=== PATIENT | female | born 1940 | race Caucasian/White ===

== ENCOUNTER 2016-10-08 10:00 | Outpatient (RCR) | payer MEDICARE, BC ==
[~2016-10-08 10:00] MED LIST: ANUSOL-HC SUPPO25 MG RC; ESTRACE0.5 MG PO; ETODOLAC500 MG PO; PREMARIN0.3 MG PO; TAZTIA XT180 MG PO
== END 2016-10-08 11:06 | disposition home or self-care (01) ==
LOC: MKS.ESL.PT 10:00
DX: M47.816 Spondylosis without myelopathy or radiculopathy, lumbar region (principal); M17.0 Bilateral primary osteoarthritis of knee; I10 Essential (primary) hypertension; Z90.710 Acquired absence of both cervix and uterus; Z90.721 Acquired absence of ovaries, unilateral
CPT/HCPCS: G0283-GP; G8978-GP; G8979-GP; G8980-GP

== ENCOUNTER → 2016-11-24 | Outpatient (CLI) | payer MEDICARE, BC | LOC: MC.RAD 10:55 | DX: Z12.31 Encounter for screening mammogram for malignant neoplasm of breast (principal) ==

== ENCOUNTER → 2017-05-07 | Outpatient (CLI) | payer MEDICARE, BC | LOC: COL.RAD 05-03 13:00 | DX: M16.11 Unilateral primary osteoarthritis, right hip (principal) | CPT/HCPCS: J3301; Q9967 ==

== ENCOUNTER → 2017-06-25 | Outpatient (CLI) | payer MEDICARE, BC | LOC: COL.LAB 10:54 | DX: Z01.812 Encounter for preprocedural laboratory examination (principal) ==

== ENCOUNTER → 2018-11-08 | Outpatient (CLI) | payer MEDICARE, BC | LOC: MC.RAD 11:14 | DX: Z12.31 Encounter for screening mammogram for malignant neoplasm of breast (principal) ==

== ENCOUNTER → 2020-04-04 | Outpatient (CLI) | payer MEDICARE, BC | LOC: MC.RAD 09:15 | DX: N63.10 Unspecified lump in the right breast, unspecified quadrant (principal) ==

== ENCOUNTER 2020-05-13 14:20 | Inpatient (IN) | payer MEDICARE, BC ==
[~2020-05-13] VITALS: Ht 160 cm; Wt 65.5 kg
[2020-05-13 15:43] LABS: BASO % 0.1 % (0.0-2.0); GRAN # 6.8 (1.4-6.5); GRAN % 84.5 % (42.2-75.2); HEMATOCRIT 38.3 % (37.0-47.0); HEMOGLOBIN 12.5 g/dl (12.5-16.0); LYMPH # 0.7 (1.2-3.4); LYMPH % 8.5 % (20.0-51.0); MEAN CELL VOLUME 101 fl (80.0-100.0); MEAN CORPUSCULAR HEMOGLOBIN 33 pg (27.0-31.0); MEAN CORPUSCULAR HGB CONC 33 g/dl (33.0-37.0); MEAN PLATELET VOLUME 8.1 fl (7.4-10.4); MONO # 0.5 (0.1-0.6); MONO % 6.5 % (1.7-9.3); PLATELET COUNT 248 K/mm3 (130-400); RED BLOOD COUNT 3.78 M/mm3 (4.10-5.30); REDCELL DISTRIBUTION WIDTH-CV 13.2 % (11.5-14.5)
[2020-05-13 15:55] LABS: ALBUMIN 3.7 gm/dL (3.5-5.0); BILIRUBIN,TOTAL 0.7 mg/dL (0.0-1.0); CALCIUM 9.2 mg/dL (8.4-10.2); CREATININE, serum 0.63 (0.52-1.25); POTASSIUM 4.6 mmol/L (3.4-5.0); TOTAL PROTEIN 6.4 gm/dL (6.4-8.2)
[2020-05-13 17:07] LABS: COLLECTION METHOD CLEAN CATCH
[2020-05-13 17:15] LABS: PH 6 (5-8); SQUAMOUS EPITHELIAL 0-2 /hpf; URINE APPEARANCE Clear; URINE BACTERIA None Seen /hpf; URINE BILIRUBIN Negative (NEGATIVE); URINE BLOOD Negative (NEGATIVE); URINE COLOR Straw; URINE GLUCOSE 1+ (NEGATIVE); URINE KETONE Negative (NEGATIVE); URINE LEUKOCYTE ESTERASE Negative (NEGATIVE); URINE NITRATE Negative (NEGATIVE); URINE PROTEIN(semi-quant) Negative (NEGATIVE); URINE RBC 0-2 /hpf; URINE UROBILINOGEN Negative (NEGATIVE)
[2020-05-13] MEDS ORDERED: APRISO0.375 GM PO (17:46)
[2020-05-13] MEDS ORDERED: PREDNISONE10 MG PO (17:48)
[2020-05-13] MEDS ORDERED: PROBIOTIC FORMU1 CAP PO (17:49)
[2020-05-13 19:19] VITALS: BP 140/75; PULSE 87; TEMP 97.9
--- NOTE | 2020-05-13 19:56 | NUR ---
Awake, alert, oriented, ambulatory with steady gait, denies pain, clear liquid diet, tolerating diet well, updated on plan of care
[2020-05-14 00:02] VITALS: BP 127/71; PULSE 61; TEMP 97.9
[2020-05-14 04:42] VITALS: BP 136/75; PULSE 71; TEMP 97.4
[2020-05-14 07:13] VITALS: BP 144/76; PULSE 90; TEMP 97.4
[2020-05-14 07:19] LABS: BASO % 0.3 % (0.0-2.0); GRAN # 5.3 (1.4-6.5); GRAN % 84.7 % (42.2-75.2); HEMOGLOBIN 11.6 g/dl (12.5-16.0); LYMPH # 0.7 (1.2-3.4); LYMPH % 10.8 % (20.0-51.0); MEAN CELL VOLUME 102 fl (80.0-100.0); MEAN CORPUSCULAR HEMOGLOBIN 33 pg (27.0-31.0); MEAN CORPUSCULAR HGB CONC 32 g/dl (33.0-37.0); MEAN PLATELET VOLUME 8.5 fl (7.4-10.4); MONO # 0.2 (0.1-0.6); MONO % 3.7 % (1.7-9.3); PLATELET COUNT 239 K/mm3 (130-400); RED BLOOD COUNT 3.51 M/mm3 (4.10-5.30); REDCELL DISTRIBUTION WIDTH-CV 13.2 % (11.5-14.5)
[2020-05-14 07:21] LABS: HEMATOCRIT 35.9 % (37.0-47.0)
[2020-05-14 07:30] LABS: CALCIUM 8.4 mg/dL (8.4-10.2); CREATININE, serum 0.57 (0.52-1.25); MAGNESIUM 2.3 mg/dL (1.6-2.3); POTASSIUM 3.9 mmol/L (3.4-5.0)
--- NOTE | 2020-05-14 08:00 | NUR ---
Patient sitting up in bed. Alert and oriented x 3. Assessment complete. IVF infusing per orders to RAC. Denies pain at this time. Patient states she did have one episode of diarrhea this AM. Denies further needs at this time.
--- NOTE | 2020-05-14 09:30 | NUR ---
Restarted IV to left forarm, x 1 attempt and discontinued IV to RAC; catheter tip intact. Denies further needs at this time.
--- NOTE | 2020-05-14 10:24 | NUR ---
SW met with the patient to discuss discharge plan. The patient resides at [facility] with her , Henry (ph#[phone]). She reports independence with ADLs and has a cane. The patient's PCP is Dr. Shaun Tang and she receives her medications from [facility]. She reports no difficulties obtaining her meds. The patient's DPOA-HC is in EMR and it designates her and daughter, Ashley ([id number]#[phone]). The patient plans to return home with her upon discharge. KAR contacted the the patient's , Henry, to review the above information. Henry has no concerns about the patient returning back home with him upon discharge. KAR asked the hospitalist for PT/OT to be ordered. SW to continue to follow as needed.
--- NOTE | 2020-05-14 10:27 | NUR ---
Initial visit; Patient thanked Rehabilitation Specialist for looking in on her, offering encouragement and prayer. Rehabilitation Specialist will follow up and keep patient in her prayers.
[2020-05-14 11:01] VITALS: BP 127/74; PULSE 70; TEMP 98.3
[2020-05-14 15:28] LABS: CLOSTRIDIUM DIFF A/B NEG; CLOSTRIDIUM DIFF A/B INTERP No C.diff present
[2020-05-14 16:24] VITALS: BP 117/68; PULSE 59; TEMP 98.1
--- NOTE | 2020-05-14 18:58 | NUR ---
Patient doing well throuhgout the day, minimal needs. Up independently in room. Patient tolerating diet. Denies pain througout the day. Denies further needs at this time. 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
--- NOTE | 2020-05-14 19:03 | NUR ---
Contacted Nya QUINTANILLA, patient complaining of burning with urination.
[2020-05-14 19:51] VITALS: BP 111/68; PULSE 64; TEMP 97.6
--- NOTE | 2020-05-14 21:15 | NUR ---
- PT SETTING UP IN RECLINER. DENIES ANY PAIN, SOA OR DIZZY. CONT TO HAVE SOME BLOODY STOOL WHICH SHE STATES IS NORMAL FOR HER. C/O BURNING W URINATION, UA OBTAINED AND SENT. ASSESSMENT AND PM MEDS GIVEN. POC DISCUSSED W PT. NEEDS MET .
[2020-05-15] VITALS (7 sets, daily range): BP systolic 104–152; BP diastolic 63–80; PULSE 59–79; TEMP 97.5–98.4
[2020-05-15 00:25] LABS: COLLECTION METHOD CLEAN CATCH
[2020-05-15 00:34] LABS: MUCOUS Present /lpf; PH 5 (5-8); URINE APPEARANCE Hazy; URINE BACTERIA Rare /hpf; URINE BILIRUBIN Negative (NEGATIVE); URINE BLOOD Negative (NEGATIVE); URINE COLOR Yellow; URINE GLUCOSE 3+ (NEGATIVE); URINE KETONE Negative (NEGATIVE); URINE LEUKOCYTE ESTERASE Negative (NEGATIVE); URINE NITRATE Negative (NEGATIVE); URINE PROTEIN(semi-quant) Negative (NEGATIVE); URINE UROBILINOGEN Negative (NEGATIVE)
--- NOTE | 2020-05-15 05:59 | NUR ---
PT RESTED THROUGH OUT THE NIGHT WITHOUT INCIDENT. UA CAME BACK , NO NEW ORDERS RECIEVED. NEEDS MET.
[2020-05-15 06:18] LABS: BASO % 0.2 % (0.0-2.0); GRAN # 4.7 (1.4-6.5); GRAN % 81.5 % (42.2-75.2); HEMATOCRIT 37.8 % (37.0-47.0); HEMOGLOBIN 12.2 g/dl (12.5-16.0); LYMPH # 0.7 (1.2-3.4); LYMPH % 11.7 % (20.0-51.0); MEAN CELL VOLUME 102 fl (80.0-100.0); MEAN CORPUSCULAR HEMOGLOBIN 33 pg (27.0-31.0); MEAN CORPUSCULAR HGB CONC 32 g/dl (33.0-37.0); MEAN PLATELET VOLUME 8.5 fl (7.4-10.4); MONO # 0.3 (0.1-0.6); MONO % 5.7 % (1.7-9.3); PLATELET COUNT 255 K/mm3 (130-400); REDCELL DISTRIBUTION WIDTH-CV 13.2 % (11.5-14.5)
[2020-05-15 06:28] LABS: CALCIUM 8.8 mg/dL (8.4-10.2); CREATININE, serum 0.6 (0.52-1.25); POTASSIUM 3.9 mmol/L (3.4-5.0)
--- NOTE | 2020-05-15 11:57 | NUR ---
First visit from the shorer. No needs right now.
--- NOTE | 2020-05-15 18:30 | NUR ---
Patient has been doing well today. No complains of pain or nausea. He has some burning with urination, got AZO ordered for her. She said this is a chronic issue that she usually drinks water and cranberry juice for. It is not working today though. She continues to have some bleeding from her hemroids, no blood noted in her stool this morning. No complaints of nausea. She sat up in the chair most the day. No other changes at this time. Call light within reach.
--- NOTE | 2020-05-15 21:26 | NUR ---
2024- ASSESSMENT AND VITALS COMPLETE. PT FEELS BETTER TODAY. DENIES PAIN OR DISCOMFORT. NO BLOODY STOOL SINCE YESTURDAY AFTERNOON. IV STERIODS PER ORDER. PYRDIUM FOR URINARY DISCOMFORT DURING DAY TODAY GIVEN. PLAN OF CARE DISCUSSED. PT NEEDS MET. CALL LIGHT WI REACH.
[2020-05-16 03:58] VITALS: BP 104/74; PULSE 60; TEMP 98.3
--- NOTE | 2020-05-16 05:21 | NUR ---
PT RESTING THROUGH THE NIGHT WITHOUT INCIDENT. DID NEED AZO FOR BLADDER IRRITATION THIS AM. NEEDS MET.
[2020-05-16 06:30] LABS: BASO % 0.2 % (0.0-2.0); GRAN # 8.2 (1.4-6.5); GRAN % 83.5 % (42.2-75.2); HEMOGLOBIN 11.4 g/dl (12.5-16.0); LYMPH # 0.8 (1.2-3.4); LYMPH % 7.7 % (20.0-51.0); MEAN CELL VOLUME 102 fl (80.0-100.0); MEAN CORPUSCULAR HEMOGLOBIN 34 pg (27.0-31.0); MEAN CORPUSCULAR HGB CONC 33 g/dl (33.0-37.0); MEAN PLATELET VOLUME 8.6 fl (7.4-10.4); MONO # 0.8 (0.1-0.6); MONO % 7.8 % (1.7-9.3); PLATELET COUNT 233 K/mm3 (130-400); RED BLOOD COUNT 3.39 M/mm3 (4.10-5.30); REDCELL DISTRIBUTION WIDTH-CV 13.2 % (11.5-14.5)
[2020-05-16 06:31] LABS: HEMATOCRIT 34.6 % (37.0-47.0)
[2020-05-16 06:39] LABS: CALCIUM 8.6 mg/dL (8.4-10.2); CREATININE, serum 0.61 (0.52-1.25); POTASSIUM 3.6 mmol/L (3.4-5.0)
--- NOTE | 2020-05-16 06:52 | NUR ---
Lying in bed with eyes open. Alert and oriented x4. Denies pain. Patient says that she does not think that she has a GI bleed anymore but feels that she is having a hemmorhoid flare up which she gets when her ulcerative colitis flares up. Bladder spasms have decreased with use of pyridium. Patient says that when she discharges she would like to get a prescription for the pyridium to continue at home. Patient denies additional needs at this time.
[2020-05-16 07:44] VITALS: BP 147/76; PULSE 70; TEMP 97.9
[2020-05-16] MEDS ORDERED: PREDNISONE10 MG PO (09:02)
[2020-05-16] MEDS ORDERED: AZO URINARY PAI95 MG PO (09:02)
[2020-05-16] MEDS ORDERED: ANUSOL-HC SUPPO25 MG RC (09:02)
[2020-05-16] MEDS ORDERED: PROTONIX 40MG T40 MG PO (10:01)
--- NOTE | 2020-05-16 10:01 | NUR ---
SW attended clinical rounds. The patient is to discharge back home with her today, 05/16. SW followed up with the patient and presented and read the IM form outloud to her. The patient verbalized understanding and gave SW approval to sign the form on her behalf. SW provided her with a copy. No additional needs at this time.
--- NOTE | 2020-05-16 10:48 | NUR ---
Review all discharge instructions with the patient. Verbalizes understanding, denies questions, signs discharge paperwork. Discharge packet provided to the patient. Patient is dressed, has all belongings together. Has ordered lunch. Spouse will come to garbage pick up man patient around 1200. Patient will use call light when ready to leave. Denies additional needs at this time.
[2020-05-16 11:32] VITALS: BP 110/64; PULSE 73; TEMP 98.8
--- NOTE | 2020-05-16 11:50 | NUR ---
Patient calls as her spouse is here to take her home. Patient assisted out to POV with all belongings via wheelchair by otilio Huffman.
== END 2020-05-16 11:50 | disposition home or self-care (01) | DRG 387 ==
LOC: COL.ER 14:20 → SURG 18:11
PROVIDERS: Emergency Medicine; Internal Medicine Gastroenterology; Student in an Organized Health Care Education/Training Program; ADMIT Internal Medicine
DX: K51.311 Ulcerative (chronic) rectosigmoiditis with rectal bleeding (principal); I10 Essential (primary) hypertension; K64.9 Unspecified hemorrhoids; Z90.710 Acquired absence of both cervix and uterus; Z87.891 Personal history of nicotine dependence; Z88.0 Allergy status to penicillin; Z88.2 Allergy status to sulfonamides; Z88.8 Allergy status to other drugs, medicaments and biological substances
CPT/HCPCS: 99222-AI; 99232-AI; 99233-AI; 99239; J1650; J2930; J7030

== ENCOUNTER → 2022-12-02 | Outpatient (CLI) | payer MEDICARE ==
[~2022-12-02] MED LIST changes: +APRISO0.375 GM PO; +AZO URINARY PAI95 MG PO; +PREDNISONE10 MG PO; +PROBIOTIC FORMU1 CAP PO; +PROTONIX 40MG T40 MG PO
== END ==
LOC: COL.RAD 09:30 → MC.RAD 09:30
DX: Z12.31 Encounter for screening mammogram for malignant neoplasm of breast (principal)